=== PATIENT | male | born 1950 | race Caucasian/White ===

== ENCOUNTER 2016-10-26 10:37 | Day surgery (SDC) | payer BC ==
[2016-10-21 14:56] VITALS: BMI 23.8
[~2016-10-26 10:37] MED LIST: DEXAMETHASONE SOD PHOSPHATE 10 MG/ML 1 ML VIAL IV ONE; HYDROmorphone 1 MG/ML 1 ML SYRINGE IVP PRN; LACTATED RINGERS 1,000 ML IV SCH; MIDAZOLAM 2 MG/2 ML VIAL IV PRN; ONDANSETRON 4 MG/2 ML VIAL IVP ONE
[2016-10-26 11:40] VITALS: TEMP 98.5
[2016-10-26] MEDS ORDERED: LIDOCAINE 1% 20 ML VIAL (10MG/ML) FOR IV START INTRADERMA ONE (11:47)
[2016-10-26] MEDS ORDERED: LIDOCAINE 1% INJ 10MG/ML (20 ML MDV) ONE (11:48)
[2016-10-26] MEDS ORDERED: PROPOFOL 10 MG/ML 20 ML VIAL IV ONE (11:48)
--- NOTE | 2016-10-26 12:07 | P.PCN ---
Date of Procedure: 10/26/16 Procedure(s) Performed: Brief history: Patient is a pleasant 66-year-old white male, scheduled for an elective upper endoscopy as well as colonoscopy as a part of evaluation of gastric esophageal reflux symptoms and prior history of colon polyps Procedure performed: Esophagogastroduodenoscopy with biopsy Colonoscopy Preoperative diagnosis: GERD History of colon polyps Anesthesia: [facility] [place] Procedure: After informed consent was obtained from the patient was brought into the endoscopy unit and IV conscious sedation was administered by anesthesia under continuous monitoring. Initially upper endoscopy was done. The Olympus GF 160 video endoscope was inserted inserted into the mouth and esophagus intubated without any difficulty and was gradually advanced into the stomach and duodenum and carefully examined. The bulb and second part of the duodenum appeared normal. The scope was then withdrawn into the stomach adequately insufflated with air and upon careful examination the antrum had minimal mottling of the mucosa consistent with gastritis. The body, cardia and fundus appeared normal. The scope was then withdrawn into the esophagus. The GE junction was located at 40 cm to the incisors. It appeared regular with no erythema but 1 erosion consistent with LA grade a reflux esophagitis. Rest of the esophagus appeared normal. Patient tolerated the procedure well. At this time the patient continued to remain sedation. Initial digital rectal examination was normal. Olympus CF 160 video colonoscope was then inserted into the rectum and gradually advanced to the cecum without any difficulty. Careful examination was performed as the scope was gradually being withdrawn. The prep was excellent. The cecum, ascending colon, transverse colon, descending colon, sigmoid colon and rectum appeared normal. Scattered sigmoid diverticulosis seen. Retroflexion was performed in the rectum and small internal hemorrhoids were noted. Patient tolerated the procedure well. Impression: 1. Upper endoscopy revealed mild antral gastritis in LA grade a reflux esophagitis. 2. Colonoscopy revealed scattered sigmoid diverticulosis and small internal hemorrhoids. Recommendations: Findings of this examination were discussed with the patient as well as his family. He was advised to follow with the biopsy results. He was advised to use [id number] Zantac 150 milligrams twice daily and follow antireflux measures. He was advised to have a repeat surveillance colonoscopy in 5 years from now because of the prior history of colon polyps
[2016-10-26 12:37] VITALS: BP 117/76; PULSE 70; RESP 16
== END 2016-10-26 12:51 | disposition home or self-care (01) ==
LOC: ORWHC2ENDO 10:37
PROVIDERS: ATTEND Internal Medicine Gastroenterology
DX: Z12.11 Encounter for screening for malignant neoplasm of colon (principal); Z86.010 Personal history of colon polyps; K29.50 Unspecified chronic gastritis without bleeding; K57.30 Diverticulosis of large intestine without perforation or abscess without bleeding; K64.8 Other hemorrhoids; K21.0 Gastro-esophageal reflux disease with esophagitis; J45.909 Unspecified asthma, uncomplicated; Z79.899 Other long term (current) drug therapy; Z88.5 Allergy status to narcotic agent
CPT/HCPCS: 88305; 88342; 43239; J2001; J2704; G0105

== ENCOUNTER → 2017-08-24 | Outpatient (CLI) | payer MEDICARE, OTHER | LOC: RADMRIMAIN 16:55 | PROVIDERS: ATTEND Family Medicine | DX: M48.02 Spinal stenosis, cervical region (principal); Z53.8 Procedure and treatment not carried out for other reasons ==

== ENCOUNTER 2018-11-14 10:35 | Day surgery (SDC) | payer MEDICARE, OTHER ==
[2018-11-09 15:56] VITALS: BMI 22.9
[~2018-11-14 10:35] MED LIST changes: -DEXAMETHASONE SOD PHOSPHATE 10 MG/ML 1 ML VIAL IV ONE; -HYDROmorphone 1 MG/ML 1 ML SYRINGE IVP PRN; +LIDOCAINE 1% 20 ML VIAL (10MG/ML) FOR IV START INTRADERMA PRN; -MIDAZOLAM 2 MG/2 ML VIAL IV PRN; -ONDANSETRON 4 MG/2 ML VIAL IVP ONE
[2018-11-14 11:46] VITALS: TEMP 98
[2018-11-14] MEDS ORDERED: LIDOCAINE 1% INJ 10MG/ML (20 ML MDV) ONE (12:32)
[2018-11-14] MEDS ORDERED: PROPOFOL 10 MG/ML 20 ML VIAL IV ONE (12:32)
--- NOTE | 2018-11-14 12:41 | P.PCN ---
Date of Procedure: 11/14/18 Procedure(s) Performed: BRIEF HISTORY: Patient is a 68-year-old, pleasant, male, scheduled for an upper endoscopy as a part of value should of intermittent dysphagia to solids for the last 6 months duration. He denies any heartburn. Reports no odynophagia.. PROCEDURE PERFORMED: Esophagogastroduodenoscopy with biopsy. PREOPERATIVE DIAGNOSIS: Intermittent dysphagia to solids. IV sedation per anesthesia. PROCEDURE: After informed consent was obtained, the patient was brought into the endoscopy unit. IV sedation was administered by Anesthesia under continuous monitoring. Initially the Olympus GIF-140 video endoscope was inserted into the mouth. Esophagus intubated without any difficulty. It was gradually advanced into the stomach and duodenum and carefully examined. The bulb and the second part of the duodenum appeared normal. The scope at this time was withdrawn to the stomach, adequately insufflated with air, and upon careful examination, mucosa of the antrum, body, cardia and the fundus appeared normal. The scope was then withdrawn into the esophagus. The GE junction was located at 39 cm from the incisors. There was one superficial erosion at the GE junction consistent with LA grade a reflux esophagitis. The rest of the esophagus appeared normal. Biopsies were done from the distal esophagus and the patient tolerated the procedure well. IMPRESSION: 1. Superficial erosion at the GE junction consistent with LA grade a reflux esophagitis. 2. No evidence of esophageal stricture. RECOMMENDATIONS: The findings of this examination were discussed with the patient as well as his family. He was advised to follow with the biopsy results. He was advised to use [id number] H2 blockers as needed..
[2018-11-14 12:45] VITALS: BP 119/77
[2018-11-14 13:04] VITALS: PULSE 65; RESP 18
== END 2018-11-14 13:15 | disposition home or self-care (01) ==
LOC: ORWHC2ENDO 10:35
PROVIDERS: ATTEND Internal Medicine Gastroenterology
DX: K21.0 Gastro-esophageal reflux disease with esophagitis (principal); K22.10 Ulcer of esophagus without bleeding; J44.9 Chronic obstructive pulmonary disease, unspecified; K59.00 Constipation, unspecified; Z79.899 Other long term (current) drug therapy; Z88.5 Allergy status to narcotic agent
CPT/HCPCS: 88305; 43239; J2001; J2704

== ENCOUNTER 2020-07-17 03:38 | Emergency (ER) | payer MEDICARE, OTHER ==
[2020-07-17 03:46] VITALS: BP 148/92; RESP 18; TEMP 97.9
[2020-07-17] MEDS ORDERED: predniSONE 20 MG TAB PO STA (04:09)
--- NOTE | 2020-07-17 05:04 | ED ---
Allergic Reaction HPI - General Chief complaint: Allergic Reaction Stated complaint: poss allergic reaction Source: patient Mode of arrival: ambulatory Limitations: no limitations - History of Present Illness Initial Comments: This patient is 70-year-old man who presents with complaint that it feels like his tongue is swelling. He states that he has been having intermittent ALLERGIC reactions going back years. He usually gets hives. The patient states that he did take some antihistamine, and that she is already starting to have a little bit of relief. The patient denies dyspnea or trouble with speech or swallowing. MD Complaint: other Onset/Timin -: hour(s) Severity: moderate Treatment Prior to Arrival: benadryl Previous Allergy History: other - Related Data Home Medications Medication Instructions Recorded Confirmed Multivitamins, Thera [Multivitamin] 1 tab PO DAILY 10/21/16 11/14/18 Lubiprostone [Amitiza] 8 mcg PO HS 11/09/18 11/14/18 Previous Rx's Medication Instructions Recorded predniSONE 60 mg PO DAILY #30 tab 07/17/20 Allergies Allergy/AdvReac Type Severity Reaction Status Date / Time codeine Allergy Unknown Verified 07/17/20 03:44 Review of Systems ROS Statement: Those systems with pertinent positive or pertinent negative responses have been documented in the HPI. ROS Other: All systems not noted in ROS Statement are negative. Constitutional: Denies: fever, chills ENT: Denies: throat pain, congestion Respiratory: Denies: cough, dyspnea, wheezes Cardiovascular: Denies: chest pain, palpitations, syncope Gastrointestinal: Denies: abdominal pain, nausea, vomiting, diarrhea Skin: Reports: pruritus Neurological: Denies: headache, weakness Past Medical History Past Medical History: Asthma, COPD, Eye Disorder Additional Past Medical History / Comment(s): dysphagia @times, hx ulcer, chronic constipation, emphysema, frequent sinus drng. History of Any Multi-Drug Resistant Organisms: None Reported Past Surgical History: Appendectomy, Prostate Surgery Additional Past Surgical History / Comment(s): nae cataracts, TURP in Sep., EGD,colonoscopy Past Anesthesia/Blood Transfusion Reactions: No Reported Reaction Past Psychological History: No Psychological Hx Reported Smoking Status: Former smoker Past Alcohol Use History: Occasional Past Drug Use History: None Reported - Past Family History Brother(s) Family Medical History: Cancer Father Family Medical History: Deep Vein Thrombosis (DVT) General Exam Limitations: no limitations General appearance: alert, in no apparent distress Head exam: Present: atraumatic, normocephalic Eye exam: Present: normal appearance. Absent: scleral icterus, conjunctival injection ENT exam: Present: mucous membranes moist, other (Patient does have some mild bilateral tongue edema. Airway does appear preserved) Neck exam: Present: normal inspection, full ROM Respiratory exam: Present: normal lung sounds bilaterally. Absent: respiratory distress, wheezes, rales, rhonchi, stridor, accessory muscle use, decreased breath sounds, prolonged expiratory Cardiovascular Exam: Present: regular rate, normal rhythm, normal heart sounds. Absent: systolic murmur, diastolic murmur, rubs, gallop GI/Abdominal exam: Present: soft. Absent: distended, tenderness, guarding, rebound, rigid, mass Neurological exam: Present: alert Skin exam: Present: warm, dry, intact, normal color. Absent: rash Course Vital Signs 07/17/20 07/17/20 03:38 05:11 Temperature 97.9 F 97.9 F Pulse Rate 72 62 Respiratory 18 18 Rate Blood Pressure 148/92 148/92 O2 Sat by Pulse 97 99 Oximetry Medical Decision Making - Medical Decision Making Patient is 70-year-old man with some mild to moderate tongue edema that is improving following antihistamines. Did prescribe steroids should there be any recurrence. Also discussed following with dermatology and/or immunology for ALLERGY testing and also given possibility of angioedema. Disposition Clinical Impression: Allergic reaction Disposition: HOME SELF-CARE Condition: Good Instructions (If sedation given, give patient instructions): General Allergic Reaction (ED) Prescriptions: predniSONE 60 mg PO DAILY #30 tab Is patient prescribed a controlled substance at d/c from ED?: No Referrals: Rad Coleman MD [Primary Care Provider] - 1-2 days
[2020-07-17 05:12] VITALS: PULSE 62
== END 2020-07-17 05:12 | disposition home or self-care (01) ==
LOC: EC 03:38
DX: T78.40XA Allergy, unspecified, initial encounter (principal); Z79.899 Other long term (current) drug therapy; Z88.5 Allergy status to narcotic agent; Z87.891 Personal history of nicotine dependence
CPT/HCPCS: 99283; J7512

== ENCOUNTER → 2021-08-05 | Outpatient (CLI) | payer MEDICARE, OTHER ==
--- NOTE | 2021-08-05 10:04 | US ---
EXAMINATION TYPE: US prostate transrectal DATE OF EXAM: 08/05/2021 COMPARISON: NONE CLINICAL HISTORY: R30.9 Dysuria, N40.0 Benign prostatic hyperplasia. This examination was performed using the transrectal probe. EXAM MEASUREMENTS: Gland Size: 3.9 x 3.8 x 2.0cm Volume: 15.9ml Predicted PSA: 1.9 Mildly heterogeneous gland Seminal vesicles are within normal limits. Prostate gland measures normal in size. No discrete hypoec hoic nodule seen. IMPRESSION: As above. Unremarkable study. Predicted PSA = volume x 0.12 ng/ml Calculated Volume = 0.5236 x L x W x H
--- NOTE | 2021-08-05 12:15 | US ---
EXAMINATION TYPE: US abdomen comp/pelvis limited DATE OF EXAM: 08/05/2021 COMPARISON: NONE CLINICAL HISTORY: 71-year-old male R30.9 Dysuria, N40.0 Benign prostatic hyperplasia. TECHNIQUE: Multiple sonographic images of the abdomen and bladder are obtained. FINDINGS: EXAM MEASUREMENTS: Liver Length: 15.0 cm Gallbladder Wall: 0.2 cm CBD: 0.5 cm Spleen: Unable to visualize adequately due to bowel gas. Right Kidney: 10.4 x 4.6 x 4.9 cm Left Kidney: 9.5 x 5.2 x 4.8 cm Pancreas: Most of the pancreas is visualized and shows no gross anomaly. Liver: wnl Gallbladder: wnl CBD: wnl Spleen: obscured by overlying bowel gas Right Kidney: There is an extrarenal pelvis. No calyceal dilatation to suggest hydronephrosis. Left Kidney: visualized portions wnl, inferior pole partially obscured by overlying bowel gas Upper IVC: wnl Abd Aorta: wnl Bladder: wnl Bilateral Jets Seen yes IMPRESSION: The spleen and lower pole of the left kidney are suboptimally visualized due to bowel gas. Otherwise, unremarkable sonographic examination of the abdomen and bladder.
== END ==
LOC: RADUSWWP 07:05
PROVIDERS: ATTEND Family Medicine
DX: R30.9 Painful micturition, unspecified (principal); N40.0 Benign prostatic hyperplasia without lower urinary tract symptoms
CPT/HCPCS: 76700; 76857; 76872

== ENCOUNTER 2023-02-17 12:53 | Day surgery (SDC) | payer MEDICARE, OTHER ==
[~2023-02-17 12:53] MED LIST changes: -LIDOCAINE 1% 20 ML VIAL (10MG/ML) FOR IV START INTRADERMA PRN
[2023-02-17 13:58] VITALS: TEMP 98.7
[2023-02-17] MEDS ORDERED: LIDOCAINE 2% INJ 20 MG/ML (2 ML VIAL) ONE (14:57)
[2023-02-17] MEDS ORDERED: PROPOFOL 10 MG/ML 20 ML VIAL IV ONE (14:57)
--- NOTE | 2023-02-17 15:15 | P.PCN ---
Date of Procedure: 02/17/23 Procedure(s) Performed: BRIEF HISTORY: Patient is a 73-year-old, pleasant, white male scheduled for an upper endoscopy as a part of evaluation of reflux symptoms for the last several months duration. He tried omeprazole with no help.. PROCEDURE PERFORMED: Esophagogastroduodenoscopy with biopsy. PREOPERATIVE DIAGNOSIS: Long-standing history of GERD. IV sedation per anesthesia. PROCEDURE: After informed consent was obtained, the patient was brought into the endoscopy unit. IV sedation was administered by Anesthesia under continuous monitoring. Initially the Olympus GIF-140 video endoscope was inserted into the mouth. Esophagus intubated without any difficulty. It was gradually advanced into the stomach and duodenum and carefully examined. The bulb and the second part of the duodenum appeared normal. The scope at this time was withdrawn to the stomach, adequately insufflated with air, and upon careful examination, mucosa of the antrum had mild gastritis and biopsies were done from this area. Mucosa of the, body, cardia and the fundus appeared normal. The scope was then withdrawn into the esophagus. The GE junction was located at 39 cm from the incisors. Small sliding-type well hernia noted. The esophagus appeared normal. There were superficial erosions seen in the distal esophagus consistent with LA grade B reflux esophagitis and the patient tolerated the procedure well. IMPRESSION: 1. 2 superficial erosions at the GE junction consistent with LA grade B reflux esophagitis and small hiatal hernia. 2. Mild antral gastritis. RECOMMENDATIONS: The findings of this examination were discussed with the patient as well as his family. He was advised to start [id number] Pepcid 20 mg twice daily and follow antrum reflux measures. Follow up in office in 3 months..
[2023-02-17 15:18] VITALS: RESP 16
[2023-02-17 15:47] VITALS: BP 132/79; PULSE 61
== END 2023-02-17 16:06 | disposition home or self-care (01) ==
LOC: ORWHC2ENDO 12:53
PROVIDERS: ATTEND Internal Medicine Gastroenterology
DX: K21.00 Gastro-esophageal reflux disease with esophagitis, without bleeding (principal); K29.50 Unspecified chronic gastritis without bleeding; K44.9 Diaphragmatic hernia without obstruction or gangrene; Z88.5 Allergy status to narcotic agent; J44.9 Chronic obstructive pulmonary disease, unspecified; Z90.49 Acquired absence of other specified parts of digestive tract; Z79.899 Other long term (current) drug therapy
CPT/HCPCS: 88305; 43239; J2704; J2001